=== PATIENT | female | born 1965 | race Caucasian/White ===

== ENCOUNTER → 2018-06-28 | Outpatient (CLI) | payer OTHER ==
--- NOTE | 2018-06-28 13:16 | KCIC ---
EXAM: Bilateral hands and wrists, 3 views. HISTORY: Arthritis. COMPARISON: None. FINDINGS: 3 views of both hands and wrists are obtained. There is no fracture, dislocation or subluxation. The alignment and joint spaces are unremarkable. There is a chronic corticated ossicle adjacent to the right first metacarpal phalangeal joint, likely a chronic fragmented spur. There may be a tiny degenerative subchondral cyst within the left first metacarpal head. IMPRESSION: No acute osseous finding. Electronically signed by: Melinda Blake MD (06/28/2018 1:13 PM) [place] [id number]
== END | disposition home or self-care (01) ==
LOC: KCIC 12:34
PROVIDERS: ATTEND Family Medicine
DX: M19.041 Primary osteoarthritis, right hand (principal); M19.042 Primary osteoarthritis, left hand; M19.032 Primary osteoarthritis, left wrist; M19.031 Primary osteoarthritis, right wrist; R76.8 Other specified abnormal immunological findings in serum
CPT/HCPCS: 73110; 73130

== ENCOUNTER → 2019-09-13 | Outpatient (CLI) | payer OTHER ==
--- NOTE | 2019-09-13 16:47 | KCIC ---
PA and lateral chest radiographs 09/13/2019 CLINICAL HISTORY: Right-sided chest pain and pressure for 6 weeks. PA and lateral digital radiographs of chest were obtained. No previous studies are available for comparison. The cardiac and mediastinal silhouettes are within normal limits in size and configuration. No acute pulmonary infiltrate is seen. No pleural effusion or pneumothorax is noted. Degenerative changes are seen involving the thoracic spine. The osseous structures are grossly intact. IMPRESSION: No acute abnormality is seen. Electronically signed by: Ronn Bassett MD (09/13/2019 4:44 PM) [id number]
== END | disposition home or self-care (01) ==
LOC: KCIC 13:14
PROVIDERS: ATTEND Student in an Organized Health Care Education/Training Program
DX: M05.742 Rheumatoid arthritis with rheumatoid factor of left hand without organ or systems involvement (principal); M25.50 Pain in unspecified joint; M47.814 Spondylosis without myelopathy or radiculopathy, thoracic region; R07.89 Other chest pain; Z79.899 Other long term (current) drug therapy
CPT/HCPCS: 71046